=== PATIENT | female | born 1965 | race Caucasian/White ===

== ENCOUNTER → 2017-02-15 | Outpatient (CLI) | payer BC, OTHER ==
[~2017-02-15] MED LIST: ALLDSR/24 PO; CLC100 PO; FRRS300 PO; PRCUNK PO
== END | disposition home or self-care (01) ==
LOC: C.LABSPEC 16:55
PROVIDERS: ATTEND Podiatrist Foot & Ankle Surgery
DX: L60.0 Ingrowing nail (principal)

== ENCOUNTER → 2017-05-17 | Outpatient (CLI) | payer BC, OTHER | END | disposition home or self-care (01) | LOC: C.LABSPEC 16:57 | PROVIDERS: ATTEND Podiatrist Foot & Ankle Surgery | DX: L60.0 Ingrowing nail (principal) ==

== ENCOUNTER → 2017-06-07 | Outpatient (CLI) | payer BC, OTHER | END | disposition home or self-care (01) | LOC: C.LABSPEC 17:19 | PROVIDERS: ATTEND Podiatrist Foot & Ankle Surgery | DX: L60.0 Ingrowing nail (principal) ==

== ENCOUNTER → 2017-10-03 | Outpatient (CLI) | payer OTHER ==
[2017-10-03 17:11] LABS: BLOOD UREA NITROGEN 15 mg/dl (7-18); CREATININE 1.18 mg/dl (0.60-1.20)
--- NOTE | 2017-10-10 15:15 | CODING QUERY NO DIAGNOSIS ---
TREATMENT RENDERED WITHOUT A DIAGNOSIS 67 To promote full compliance with coding requirements relating to patient care, physician participation is requested in all cases of examination grader uncertainty. Please assist us with providing a diagnosis/symptom for the test(s) below: A diagnosis/symptom was not documented on your Order. A valid diagnosis/symptom is required to bill all insurances. Please remember that we are unable to code a diagnosis of rule out, probable, possible, questionable, or suspected. DOS 10/03/17 Tests that require a diagnosis: * BUN DIAGNOSIS: * CREATININE DIAGNOSIS: Provider Signature: Date: Thank you Skylar [facility] Information Management Once completed, please kindly fax back to [phone] For questions please call [phone]
== END | disposition home or self-care (01) ==
LOC: C.LAB 16:14
PROVIDERS: ATTEND Podiatrist Foot & Ankle Surgery
DX: S92.811A Other fracture of right foot, initial encounter for closed fracture (principal); X58.XXXA Exposure to other specified factors, initial encounter

== ENCOUNTER → 2017-10-06 | Outpatient (CLI) | payer OTHER ==
[~2017-10-06] MED LIST changes: +GADAVIST IV PRN
--- NOTE | 2017-10-06 13:41 | DIAGNOSTIC IMAGING REPORT ---
MRI OF THE LEFT ANKLE COMBO CLINICAL HISTORY: Left ankle fracture. COMPARISON STUDY: Left ankle radiographs dated 10/13/2009. TECHNIQUE: MRI of the left ankle was performed utilizing various T1 and T2-weighted sequences in the axial, sagittal, and coronal planes. Contrast-enhanced sequences are acquired following the IV administration of 12 cc of Gadavist. Note that interpretation is suboptimal without current plain film correlate. FINDINGS: No marrow edema is identified and there is no MRI evidence of left ankle fracture. The ankle mortise is intact. No osteochondral defect is seen in the talar dome. Trace joint fluid is noted. Minimal arthritic change is seen near the third metatarsophalangeal joint, as well as involving the intertarsal joints. This is greatest at the talonavicular joint. There are small dorsal and plantar calcaneal enthesophytes. The plantar fascia is normal as visualized. The Achilles tendon is normal in morphology and signal intensity. There is mild thinning of the extensor hallucis longus tendon deep to the cutaneous marker. There is no surrounding edema or full-thickness tear. The anterior, posterior, and peroneal tendons are otherwise normal in appearance. There is maintenance of normal fat within the sinus tarsi. Mild soft tissue edema is present around the upper ankle, greatest laterally. Mild soft tissue edema is also seen along the dorsal aspect of the tarsal bones. No enhancing lesion is seen on the postcontrast series. There is thickening and irregularity of the anterior tibiofibular ligament consistent with age indeterminant rupture. The anterior talofibular ligament appears intact. The deltoid and spring ligaments are normal as imaged. IMPRESSION: 1. No acute bony abnormality is identified. There is no marrow edema or evidence of fracture. 2. Mild arthritic change as above, greatest at the talonavicular articulation. 3. There is mild thinning of the extensor hallucis longus tendon. No surrounding edema is identified and there is no full-thickness tear. This is likely related to a remote injury. 4. Mild soft tissue edema is present around the distal calf/upper ankle and along the dorsal surface of the tarsal bones. 5. There is age-indeterminate tearing of the anterior tibiofibular ligament, likely chronic. Dictated: 10/06/2017 12:10 PM Transcribed: 10/06/2017 1:40 PM Luis Electronically signed by: Colin Arechgia M.D. 10/06/2017 1:42 PM Dictated Date/Time: 10/06/2017 12:10 PM
== END | disposition home or self-care (01) ==
LOC: C.MRI 10:35
PROVIDERS: ATTEND Podiatrist Foot & Ankle Surgery
DX: M19.071 Primary osteoarthritis, right ankle and foot (principal); M24.174 Other articular cartilage disorders, right foot; R26.2 Difficulty in walking, not elsewhere classified